=== PATIENT | female | born 1965 | race Two or more races ===

== ENCOUNTER 2023-06-17 16:22 | Emergency (ER) | payer OTHER ==
[~2023-06-17] VITALS: Ht 160 cm; Wt 90.3 kg
[2023-06-17] MEDS ORDERED: METHYLPREDNISOLONE SOD SUCC 125 MG VIAL IV STA (18:34)
[2023-06-17] MEDS ORDERED: 0.9 % SODIUM CHLORIDE 1,000 ML IV STA (18:34)
[2023-06-17] MEDS ORDERED: BUDESONIDE 0.5 MG/2 ML AMPUL.NEB IH STA (18:35)
[2023-06-17] MEDS ORDERED: GUAIFENESIN 200 MG/10 ML BLIST.PACK PO STA (18:36)
[2023-06-17] MEDS ORDERED: LEVALBUTEROL HCL 1.25 MG/3 ML SOLUTION IH SCH (18:45)
[2023-06-17 19:45] LABS: HEMATOCRIT 47.9 % (36.0-45.00); HEMOGLOBIN 16.3 g/dL (12.0-15.00); MEAN CELL VOLUME 86.2 fL (80.00-100.00); MEAN CORPUSCULAR HEMOGLOBIN 29.3 pg (27.00-32.0); MEAN CORPUSCULAR HGB CONC 33.9 g/dl (32.0-36.0); PLATELET COUNT 199 K/uL (150-450); RED BLOOD COUNT 5.56 M/uL (4.00-6.00); RED CELL DISTRIBUTION WIDTH 13.6 % (11.5-14.5)
[2023-06-17 20:15] LABS: CALCIUM 10.2 mg/dL (8.5-10.1); CREATININE SERUM 0.83 mg/dL (0.55-1.02); GFR 70.12; POTASSIUM 3.6 mEq/L (3.5-5.1)
== END 2023-06-17 20:42 | disposition home or self-care (01) ==
LOC: ER 16:23 → EDBD 16:58 → ER 16:58
PROVIDERS: General Practice
DX: J18.8 Other pneumonia, unspecified organism (principal); Z20.822 Contact with and (suspected) exposure to COVID-19

== ENCOUNTER 2023-08-02 06:25 | Emergency (ER) | payer OTHER ==
[~2023-08-02] VITALS: Ht 157.5 cm; Wt 92.1 kg
[2023-08-02] MEDS ORDERED: NORFLEX100MG PO (06:40)
[2023-08-02] MEDS ORDERED: DICLOFENAC SODI75 MG PO (06:40)
[2023-08-02] MEDS ORDERED: TRIAMCINOLONE ACETONIDE 40 MG/ML VIAL IM ONE (06:45)
[2023-08-02] MEDS ORDERED: KETOROLAC TROMETHAMINE 60 MG VIAL IM ONE (06:45)
== END 2023-08-02 06:53 | disposition home or self-care (01) ==
LOC: ER 06:25
DX: M54.89 Other dorsalgia (principal); I10 Essential (primary) hypertension

== ENCOUNTER 2024-01-18 13:48 | Outpatient (CLI) | payer OTHER ==
[~2024-01-18 13:48] MED LIST: DICLOFENAC SODI75 MG PO; NORFLEX100MG PO
== END 2024-01-18 13:49 | disposition home or self-care (01) ==
LOC: NUCLEAR 13:48
PROVIDERS: ATTEND Family Medicine
DX: E66.9 Obesity, unspecified (principal); I10 Essential (primary) hypertension; M81.0 Age-related osteoporosis without current pathological fracture